=== PATIENT | female | born 1990 | race Two or more races ===

== ENCOUNTER 2023-10-22 21:55 | Emergency (ER) | payer MEDICAID, OTHER ==
[~2023-10-22] VITALS: Ht 175.3 cm; Wt 167.0 kg
[2023-10-22] MEDS: SODIUM CHLORIDE 0.9% 1,000 ML IV ONE (22:34)
[2023-10-22] MEDS: DexAMETHasone SOD PHOS 10MG/1ML VIAL INJ IV ONE (22:43)
[2023-10-22] MEDS: ONDANSETRON HCL 4 MG/2 ML VIAL IV ONE (22:43)
[2023-10-22] MEDS: diphenhdrAMINE HCL 50 MG/1 ML VL IV ONE (22:43)
[2023-10-22] MEDS: FAMOTIDINE (10MG/ML) 2ML VL IV ONE (22:43)
[2023-10-22 22:45] VITALS: PULSE 108; RESP 16; O2SAT 99
[2023-10-23] MEDS ORDERED: PRED20TA2 PO (01:03)
[2023-10-23] MEDS ORDERED: DIPH25CA66 PO (01:03)
[2023-10-23] MEDS ORDERED: FAMO20TA10 PO (01:03)
[2023-10-23] MEDS ORDERED: ZOFR4T PO (01:03)
[2023-10-23 01:30] VITALS: BP 155/90; PULSE 99; RESP 20; TEMP 98.6; O2SAT 97
== END 2023-10-23 01:56 | disposition home or self-care (01) ==
LOC: ER 21:55
DX: T78.49XA Other allergy, initial encounter (principal); Z98.890 Other specified postprocedural states; Z91.018 Allergy to other foods; X58.XXXA Exposure to other specified factors, initial encounter
CPT/HCPCS: 96361; 96374; 96375; 99284; J1100; J1200; J2405; J3490; J7030